=== PATIENT | female | born 1980 | race African-American/Black ===

== ENCOUNTER 2017-07-20 05:00 | Emergency (ER) | payer MEDICAID ==
[~2017-07-20] VITALS: Ht 165.1 cm; Wt 82.0 kg
[~2017-07-20 05:00] MED LIST: FERR-63 PO; HYDR-3511 PO; SYNTHROID
[2017-07-20 08:15] LABS: BASOPHILS % 0.8 % (0.0-2.0); EOSINOPHILS % 2.1 % (0.0-5.0); HEMATOCRIT. 38.7 % (36.0-48.0); HEMOGLOBIN. 12.6 g/dL (12.0-16.0); LYMPHOCYTES % 35.6 % (20.0-50.0); MEAN CORPUSCULAR HEMOGLOBIN 24.6 pg (28.0-32.0); MEAN CORPUSCULAR VOLUME 75.8 fL (81.0-99.0); MONOCYTES % 6.2 % (2.0-8.0); NEUTROPHILS % 55.3 % (40.0-76.0); PLATELET 218 x1000/uL (130-400); RED BLOOD CELL COUNT 5.11 mill/uL (4.2-5.4)
[2017-07-20] MEDS ORDERED: MORPHINE SULFATE 4 MG/ML CPJ (NOT FOR IM USE) IV ONE (08:15)
[2017-07-20] MEDS ORDERED: ONDANSETRON HCL 4MG/2ML VIAL IV ONE (08:15)
[2017-07-20 08:27] LABS: CHLORIDE 105 mEq/L (98-107)
[2017-07-20] MEDS ORDERED: DIPHENHYDRAMINE 50MG/ML VIAL IV ONE (08:45)
[2017-07-20 09:07] LABS: CLARITY URINE CLEAR (CLEAR); COLOR URINE YELLOW (YELLOW); KETONES URINE NEGATIVE (NEGATIVE); LEUKOCYTE ESTERASE URINE NEGATIVE (NEGATIVE); NITRITE URINE NEGATIVE (NEGATIVE); OCCULT BLOOD URINE NEGATIVE (NEGATIVE); PH URINE 5.5 (4.5-8.0); PROTEIN URINE NEGATIVE (NEGATIVE); SPECIFIC GRAVITY URINE 1.021 (1.005-1.030); UROBILINOGEN URINE 0.2 E.U./dL (0.2-1.0)
[2017-07-20 09:08] LABS: UCG SCREEN NEGATIVE
[2017-07-20 11:53] VITALS: BP 101/58
== END 2017-07-20 11:55 | disposition home or self-care (01) ==
LOC: ER 05:00
DX: R10.13 Epigastric pain (principal); R11.0 Nausea; E03.9 Hypothyroidism, unspecified; G89.29 Other chronic pain; K56.609 Unspecified intestinal obstruction, unspecified as to partial versus complete obstruction; Z88.0 Allergy status to penicillin; Z88.5 Allergy status to narcotic agent; Z90.710 Acquired absence of both cervix and uterus; Z93.2 Ileostomy status; Z98.890 Other specified postprocedural states
CPT/HCPCS: 36415; 74018; 80053; 81003; 81025; 83690; 85025; 85610; 96374; 96375; 99285; J1200; J2270; J2405; Z7610

== ENCOUNTER 2020-09-19 20:30 | Inpatient (IN) | payer MEDICAID, OTHER ==
[~2020-09-19] VITALS: Ht 165.1 cm; Wt 79.4 kg
[~2020-09-19 20:30] MED LIST changes: -HYDR-3511 PO; +HYDR-3512 PO
[2020-09-19] MEDS ORDERED: ACETAMINOPHEN 325MG TABLET PO ONE (21:00)
[2020-09-19] MEDS ORDERED: MORPHINE SULFATE 4 MG/ML CPJ (NOT FOR IM USE) IV PRN (21:15)
[2020-09-19 21:37] LABS: BASOPHILS % 0.2 % (0.0-2.0); EOSINOPHILS % 1.1 % (0.0-5.0); HEMATOCRIT. 35.3 % (36.0-48.0); HEMOGLOBIN. 11.7 g/dL (12.0-16.0); LYMPHOCYTES % 23.9 % (20.0-50.0); MEAN CORPUSCULAR HEMOGLOBIN 25.2 pg (28.0-32.0); MEAN CORPUSCULAR VOLUME 76.3 fL (81.0-99.0); MEAN PLATELET VOLUME 7.4 fl (7.4-10.4); MONOCYTES % 5.6 % (2.0-8.0); NEUTROPHILS % 69.2 % (40.0-76.0); PLATELET 238 x1000/uL (130-400); RED BLOOD CELL COUNT 4.63 mill/uL (4.2-5.4); RED CELL DISTRIBUTION WIDTH 15.3 % (11.6-14.6)
[2020-09-19 21:39] LABS: CLARITY URINE CLEAR (CLEAR); COLOR URINE YELLOW (YELLOW); KETONES URINE NEGATIVE (NEGATIVE); LEUKOCYTE ESTERASE URINE NEGATIVE (NEGATIVE); NITRITE URINE NEGATIVE (NEGATIVE); OCCULT BLOOD URINE NEGATIVE (NEGATIVE); PROTEIN URINE NEGATIVE (NEGATIVE); SPECIFIC GRAVITY URINE 1.026 (1.005-1.030); UROBILINOGEN URINE 0.2 E.U./dL (0.2-1.0)
[2020-09-19 21:40] LABS: CHLORIDE 109 mEq/L (98-107)
[2020-09-19 21:42] LABS: HCG SCREEN NEGATIVE
[2020-09-19] MEDS ORDERED: KETOROLAC 15MG/ML VIAL IV ONE (22:30)
[2020-09-19] MEDS ORDERED: ONDANSETRON HCL 4MG/2ML INJ IV ONE (23:45)
[2020-09-20] MEDS ORDERED: ONDANSETRON HCL 4MG/2ML INJ IV PRN (05:00)
[2020-09-20] MEDS ORDERED: HYDROCODONE/ACETAMINOPHEN 5/325MG TABLET PO PRN (05:00)
[2020-09-20 05:22] VITALS: BP 100/52
[2020-09-20 08:00] VITALS: BP 100/48
[2020-09-20] MEDS: PANTOPRAZOLE SODIUM 40 MG/VIAL IV SCH (09:15)
[2020-09-20 09:50] LABS: BASOPHILS % 0.3 % (0.0-2.0); EOSINOPHILS % 1.3 % (0.0-5.0); HEMATOCRIT. 36.5 % (36.0-48.0); HEMOGLOBIN. 12.1 g/dL (12.0-16.0); LYMPHOCYTES % 31.8 % (20.0-50.0); MEAN CORPUSCULAR HEMOGLOBIN 25.6 pg (28.0-32.0); MEAN CORPUSCULAR VOLUME 77.5 fL (81.0-99.0); MEAN PLATELET VOLUME 7.7 fl (7.4-10.4); MONOCYTES % 5.4 % (2.0-8.0); NEUTROPHILS % 61.2 % (40.0-76.0); PLATELET 219 x1000/uL (130-400); RED BLOOD CELL COUNT 4.71 mill/uL (4.2-5.4); RED CELL DISTRIBUTION WIDTH 15.1 % (11.6-14.6)
[2020-09-20 09:55] LABS: CHLORIDE 108 mEq/L (98-107)
[2020-09-20 10:02] LABS: LDL CHOLESTEROL 96 mg/dL (5-100)
[2020-09-20 10:04] LABS: HDL CHOLESTEROL 57 mg/dL (40-59)
[2020-09-20] MEDS ORDERED: HYDROCODONE/ACETAMINOPHEN 10/325MG TABLET PO PRN (11:45)
[2020-09-20 12:00] VITALS: BP 115/71
[2020-09-20] MEDS: DEXT 5%/0.45% NACL 1000ML 1,000 ML IV SCH ×2 (12:30→22:17)
[2020-09-20] MEDS: METOCLOPRAMIDE HCL 10MG/2ML VIAL IV SCH ×2 (12:56→18:51)
[2020-09-20] MEDS ORDERED: MORPHINE SULFATE 2 MG/ML CPJ (NOT FOR IM USE) IV NR (13:00)
[2020-09-20 16:00] VITALS: BP 102/52
[2020-09-20] MEDS: MORPHINE SULFATE 2 MG/ML CPJ (NOT FOR IM USE) IV PRN (18:56)
[2020-09-20 20:00] VITALS: BP 116/65
[2020-09-21] VITALS: BP 100/58
[2020-09-21] MEDS: METOCLOPRAMIDE HCL 10MG/2ML VIAL IV SCH ×3 (00:24→13:08)
[2020-09-21] MEDS: MORPHINE SULFATE 2 MG/ML CPJ (NOT FOR IM USE) IV PRN ×2 (00:32→06:14)
[2020-09-21 04:00] VITALS: BP 110/73
[2020-09-21] MEDS: DEXT 5%/0.45% NACL 1000ML 1,000 ML IV SCH (07:30)
[2020-09-21 07:48] LABS: FOLIC ACID (FOLATE) SERUM 17.5 ng/mL (>5.38)
[2020-09-21 07:57] LABS: TOTAL IRON BINDING CAPACITY 329 ug/dL (250-450)
[2020-09-21 08:00] VITALS: BP 92/59
[2020-09-21] MEDS: PANTOPRAZOLE SODIUM 40 MG/VIAL IV SCH (09:36)
[2020-09-21 12:00] VITALS: BP 127/58
[2020-09-21 15:00] VITALS: BP 127/74
[2020-09-21 16:00] VITALS: BP 127/58
== END 2020-09-21 16:22 | disposition home or self-care (01) | DRG 247 ==
LOC: ER 20:30 → 6EST 23:20 → ENRESERV 09-20 01:58
PROVIDERS: ADMIT Internal Medicine; ATTEND Internal Medicine
DX: K56.699 Other intestinal obstruction unspecified as to partial versus complete obstruction (principal); Q60.2 Renal agenesis, unspecified; E87.8 Other disorders of electrolyte and fluid balance, not elsewhere classified; K59.00 Constipation, unspecified; G89.29 Other chronic pain; D50.9 Iron deficiency anemia, unspecified; E03.9 Hypothyroidism, unspecified; Z90.49 Acquired absence of other specified parts of digestive tract; Z90.710 Acquired absence of both cervix and uterus; Z93.2 Ileostomy status; Z88.0 Allergy status to penicillin; Z79.899 Other long term (current) drug therapy; Z79.1 Long term (current) use of non-steroidal anti-inflammatories (NSAID); N20.0 Calculus of kidney; N26.1 Atrophy of kidney (terminal); M48.061 Spinal stenosis, lumbar region without neurogenic claudication
CPT/HCPCS: 36415; 72131; 74018; 74176; 76700; 80048; 80053; 80061; 81003; 82607; 82728; 82746; 83540; 83550; 84443; 84703; 85025; 99291; C9113; J1885; J2270; J2405; J2765